=== PATIENT | female | born 1980 | race Caucasian/White ===

== ENCOUNTER 2022-04-13 14:19 | Emergency (ER) | payer OTHER ==
[~2022-04-13] VITALS: Ht 157.5 cm; Wt 61.2 kg
[~2022-04-13 14:19] MED LIST: AMYL1CAP54 PO; HYDR2TAB34 PO; LORA-259 PO; ONDA4TAB5 PO; PANT20TA2 PO; SOM350 PO; fentanyl patch
[2022-04-13 14:23] VITALS: BP_SYST 167
[2022-04-13] MEDS ORDERED: HALOPERIDOL LACTATE 5 MG/ML VIAL IM ONE (15:00)
[2022-04-13 15:31] LABS: BILIRUBIN,URINE NEGATIVE (NEGATIVE); BLOOD, URINE NEGATIVE (NEGATIVE); CLARITY/URINE CLOUDY (CLEAR); COLOR,URINE YELLOW (YELLOW); GLUCOSE,URINE TRACE (NEGATIVE); KETONES,URINE 3+ (NEGATIVE); LEUKOCYTE ESTERASE ,URINE NEGATIVE (NEGATIVE); NITRITE, URINE NEGATIVE (NEGATIVE); PH,URINE 5.5 (5.0-8.0); PROTEIN URINE 1+ (NEGATIVE); UROBILINOGEN,URINE 0.2 (0.2-1.0)
[2022-04-13 15:38] LABS: BASOPHILS # (AUTO) 0.1 K/uL (0.0-0.2); BASOPHILS % (AUTO) 0.5 % (0.0-2.0); HEMATOCRIT 40.1 % (36-48); HEMOGLOBIN 14.1 g/dL (12.0-16.0); LYMPHOCYTES # (AUTO) 0.5 K/uL (1.0-5.5); LYMPHOCYTES % (AUTO) 3.8 % (20.5-51.5); MEAN CORPUSCULAR HEMOGLOBIN 33 pg (27-31); MEAN CORPUSCULAR HGB CONC 35 % (32-36); MEAN CORPUSCULAR VOLUME 95 fL (79.0-98.0); MONOCYTES # (AUTO) 0.2 K/uL (0.0-1.0); MONOCYTES % (AUTO) 1.2 % (1.7-9.3); NEUTROPHILS # (AUTO) 13.2 K/uL (1.8-7.7); NEUTROPHILS % (AUTO) 94.5 % (40.0-70.0); PLATELET COUNT (AUTO) 341 K/uL (130-430); RED BLOOD CELL COUNT(AUTO) 4.23 MIL/uL (4.2-6.2); RED CELL DISTRIBUTION WIDTH 12.2 % (9.0-15.0)
[2022-04-13 15:40] LABS: RBC,URINE 0-3 /HPF (0-3)
[2022-04-13 15:41] LABS: BACTERIA,URINE None Seen /HPF (None Seen); MUCUS,URINE 2+ /LPF (None Seen); WBC,URINE 0-3 /HPF (0-3)
[2022-04-13 15:47] LABS: BARBITURATE, URINE NEGATIVE (NEG <=200); CANNABINOID, URINE POSITIVE (NEG <=50); OPIATE, URINE POSITIVE (NEG <=100); URINE OXYCODONE SCREEN NEGATIVE (NEG <=100)
[2022-04-13 15:48] LABS: BENZODIAZEPINE, URINE NEGATIVE (NEG <=150); COCAINE, URINE NEGATIVE (NEG <=150); METHAMPHETAMINES SCREEN,URINE NEGATIVE (NEG <=500); PHENCYCLIDINE SCREEN,URINE NEGATIVE (NEG <=25); UR TRICYCLIC ANTIDEPRESSANTS NEGATIVE (NEG <=300); URINE AMPHETAMINE NEGATIVE (NEG <=500); URINE METHADONE NEGATIVE (NEG <=200); URINE PROPOXYPHENE SCREEN NEGATIVE (NEG <=300)
[2022-04-13 15:53] LABS: ANION GAP 10 (5-15); CALCIUM 9.8 mg/dL (8.4-11.0); CHLORIDE 103 mmol/L (98-107); CREATININE 0.78 mg/dL (0.55-1.30); GLUCOSE 163 mg/dL (70-99); POTASSIUM 3.5 mmol/L (3.5-5.1); UREA NITROGEN, BLOOD 10 mg/dL (8-21)
[2022-04-13 16:00] LABS: GFR AFRICAN AMERICAN 104 mL/min (>90)
[2022-04-13 16:06] LABS: ALANINE AMINOTRANSFERASE 45 U/L (12-78); ALBUMIN 4.3 g/dL (3.4-4.8); AMYLASE 74 U/L (0-100); ASPARTATE AMINOTRANSFERASE 18 U/L (10-37); C-REACTIVE PROTEIN QUANT 0.3 mg/dL (0-0.5); LACTATE DEHYDROGENASE 168 U/L (81-234); LIPASE 64 U/L (73-393); TOTAL BILIRUBIN 0.4 mg/dL (0.0-1.0)
[2022-04-13] MEDS ORDERED: OMEP20CA15 PO (16:49)
[2022-04-13] MEDS ORDERED: METO-290 PO (16:49)
[2022-04-13 16:56] VITALS: BP_SYST 158
[2022-04-13 17:45] LABS: ACETONE, SERUM NEGATIVE (NEGATIVE)
== END 2022-04-13 16:56 | disposition home or self-care (01) ==
LOC: SED 14:19
DX: R11.15 Cyclical vomiting syndrome unrelated to migraine (principal); R10.9 Unspecified abdominal pain; J45.909 Unspecified asthma, uncomplicated; K21.9 Gastro-esophageal reflux disease without esophagitis; Z88.6 Allergy status to analgesic agent; Z79.899 Other long term (current) drug therapy
CPT/HCPCS: 99285; 74176; 80307; 80053; 81000; 82009; 82150; 83615; 83690; 85025; 86140; 84484; 36415; 93005; 76376; 81025; 96372; 83605; J1630